=== PATIENT | male | born 1965 | race Caucasian/White ===

== ENCOUNTER 2017-01-31 10:08 | Observation (INO) | payer OTHER, SELFPAY ==
[~2017-01-31] VITALS: Ht 180.3 cm; Wt 121.0 kg
[2017-01-31] MEDS ORDERED: IPRATROPIUM 0.5MG/ALBUTEROL 2.5MG INH SOL UD 3ML (DUONEB)(J7620) As Ordered ONE (10:10)
[2017-01-31] MEDS ORDERED: ALBUTEROL SULFATE 2.5 MG/0.5 ML INH NEB SOLN INH ONE (10:15)
[2017-01-31] MEDS ORDERED: methylPREDNISolone INJ 125 MG/2 ML VIAL (J2930) IV ONE (10:15)
[2017-01-31] MEDS ORDERED: NS 1,000 ML IV ONE (10:15)
[2017-01-31] MEDS ORDERED: ATOR1TAB21 PO (10:24)
[2017-01-31] MEDS ORDERED: IPRATROPIUM 0.5MG/ALBUTEROL 2.5MG INH SOL UD 3ML (DUONEB)(J7620) NEB ONE (10:30)
[2017-01-31 10:31] LABS: BASO # 0.1 10^3/uL (0.0-0.2); BASO % 0.5 % (0.0-1.0); EOS # 0.2 10^3/uL (0.0-0.50); EOS % 1.2 % (0.0-3.0); IMMATURE GRANULOCYTE % 0.8 % (0-0); LYMPH # 3.6 10^3/uL (1.5-4.5); LYMPH % 20.9 % (24.0-44.0); MEAN CORPUSCULAR HEMOGLOBIN 33.3 pg (27.0-33.0); MEAN CORPUSCULAR HGB CONC 34.5 g/dl (32.0-36.5); MEAN CORPUSCULAR VOLUME 96.5 fl (80.0-96.0); MONO # 0.9 10^3/uL (0.0-0.8); MONO % 5.3 % (0.0-5.0); NEUTROPHILS # 12.3 10^3/uL (1.8-7.7); NEUTROPHILS % 71.3 % (36.0-66.0); PLATELET COUNT, AUTOMATED 192 10^3/uL (150-450); RED CELL DISTRIBUTION WIDTH 12.7 % (11.5-14.5); WHITE BLOOD COUNT 17.3 10^3/uL (4.0-10.0)
[2017-01-31 10:37] LABS: ABG HCO3 16.8 MEQ/L (22.0-26.0); ABG PARTIAL PRESSURE CO2 24.5 mmHg (35.0-45.0); ABG PARTIAL PRESSURE O2 98.9 mmHg (75.0-100.0); ABG STANDARD HCO3 20.4 MEQ/L (22.0-26.0); ABG TOTAL CO2 17.6 MEQ/L (22.0-29.0); ABG pH (ARTERIAL) 7.454 UNITS (7.350-7.450)
[2017-01-31] MEDS ORDERED: MORPHINE 4 MG/ML 1ML SYRINGE IV ONE ×2 (11:00→12:15)
[2017-01-31] MEDS ORDERED: ONDANSETRON 4MG/2ML VIAL (J2405) IV ONE (11:00)
[2017-01-31 11:08] LABS: ALBUMIN 3.6 GM/DL (3.2-5.2); ALBUMIN/GLOBULIN RATIO 1.03 (1.00-1.93); ALKALINE PHOSPHATASE 99 U/L (45-117); ALT/SGPT 77 U/L (12-78); ANION GAP 13 MEQ/L (8-16); AST/SGOT 49 U/L (7-37); BILIRUBIN,DIRECT < 0.1 MG/DL (0.0-0.2); BILIRUBIN,TOTAL 0.3 MG/DL (0.2-1.0); BLOOD UREA NITROGEN 18 MG/DL (7-18); CALCIUM LEVEL 9.2 MG/DL (8.5-10.1); CARBON DIOXIDE LEVEL 23 MEQ/L (21-32); CHLORIDE LEVEL 101 MEQ/L (98-107); CREATININE FOR GFR 1.45 MG/DL (0.70-1.30); GLOMERULAR FILTRATION RATE 54.4 (>56); GLUCOSE, FASTING 209 MG/DL (70-105); POTASSIUM SERUM 4.4 MEQ/L (3.5-5.1); SODIUM LEVEL 137 MEQ/L (136-145); TOTAL PROTEIN 7.1 GM/DL (6.4-8.2)
[2017-01-31] MEDS ORDERED: POLYSPORIN TOPICAL OINTMENT 15GM As Ordered ONE (11:22)
--- NOTE | 2017-01-31 11:23 | REP ---
Chest one-view HISTORY: Cough Comparison: 07/18/2012 The lungs are clear. The heart is normal in size. The pulmonary vasculature is normal in appearance. Impression: No acute disease. Signed by Paulino Cordova MD 01/31/2017 11:15 A
[2017-01-31] MEDS ORDERED: LEVALBUTEROL 1.25 MG/0.5 ML CONCENTRATE NEB INH ONE (11:30)
[2017-01-31] MEDS ORDERED: POLYSPORIN TOPICAL OINTMENT 15GM TOP ONE (12:45)
[2017-01-31] MEDS ORDERED: PERCOCET 5MG/325MG TAB PO ONE (13:15)
[2017-01-31] MEDS ORDERED: ADACEL/BOOSTRIX VACCINE (DIPHTH/PERTUSS/ACELL/TETANUS)0.5ML SYR (90715) IM ONE (13:30)
[2017-01-31] MEDS ORDERED: TETANUS/DIPHTHERIA TOX ADSORB ADULT 0.5ML SYR/VIAL (90714) IM ONE (13:30)
[2017-01-31] MEDS ORDERED: ALBUTEROL 90 MCG/ACT 8GM HFA INHALER As Ordered ONE (13:38)
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
[2017-01-31] MEDS ORDERED: MORPHINE 2 MG/ML 1ML SYRINGE IV PRN (15:15)
[2017-01-31] MEDS ORDERED: ONDANSETRON 4MG/2ML VIAL (J2405) IV PRN (15:15)
[2017-01-31] MEDS ORDERED: THIAMINE HCL 200 MG/2 ML VIAL (J3411) IV ONE (15:15)
[2017-01-31] MEDS ORDERED: OXAZEPAM 10 MG CAP PO PRN (15:15)
[2017-01-31] MEDS ORDERED: ALBUTEROL SULFATE 2.5 MG/0.5 ML INH NEB SOLN NEB PRN (15:45)
[2017-01-31 16:00] VITALS: BP 138/97; O2SAT 96
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
[2017-01-31] MEDS: NS 1,000 ML IV SCH (18:07)
[2017-01-31] MEDS: THIAMINE 100 MG TAB PO SCH (18:17)
[2017-01-31 18:44] VITALS: O2SAT 96
[2017-01-31 20:00] VITALS: BP 175/95
[2017-01-31] MEDS: ALBUTEROL SULFATE 2.5 MG/0.5 ML INH NEB SOLN NEB SCH (20:09)
[2017-01-31 21:00] VITALS: O2SAT 94
[2017-01-31] MEDS ORDERED: ENOXAPARIN 40 MG/0.4 ML SYRINGE (J1650) SC SCH (21:00)
[2017-01-31] MEDS ORDERED: ATORVASTATIN 20 MG TAB PO SCH (21:00)
[2017-01-31] MEDS: ACETAMINOPHEN TAB 650MG DOSE (2X325MG) PO PRN (21:41)
[2017-01-31 23:00] VITALS: O2SAT 93
[2017-01-31] MEDS: traMADol 50 MG TAB PO PRN (23:50)
[2017-02-01] VITALS (9 sets, daily range): BP systolic 111–187; BP diastolic 62–96; O2SAT 89–97
[2017-02-01] MEDS: ALBUTEROL SULFATE 2.5 MG/0.5 ML INH NEB SOLN NEB SCH ×2 (01:50→07:00)
[2017-02-01] MEDS: NS 1,000 ML IV SCH ×2 (02:58→08:47)
[2017-02-01] MEDS: ACETAMINOPHEN TAB 650MG DOSE (2X325MG) PO PRN (02:58)
[2017-02-01 05:37] LABS: BASO % 0.1 % (0.0-1.0); IMMATURE GRANULOCYTE % 0.4 % (0-0); LYMPH # 0.9 10^3/uL (1.5-4.5); LYMPH % 8.3 % (24.0-44.0); MEAN CORPUSCULAR HGB CONC 34.2 g/dl (32.0-36.5); MEAN CORPUSCULAR VOLUME 96.7 fl (80.0-96.0); MONO # 0.7 10^3/uL (0.0-0.8); MONO % 6.2 % (0.0-5.0); NEUTROPHILS # 9.6 10^3/uL (1.8-7.7); PLATELET COUNT, AUTOMATED 134 10^3/uL (150-450); RED CELL DISTRIBUTION WIDTH 13.1 % (11.5-14.5); WHITE BLOOD COUNT 11.3 10^3/uL (4.0-10.0)
[2017-02-01 06:00] LABS: ALBUMIN 3.3 GM/DL (3.2-5.2); ALBUMIN/GLOBULIN RATIO 0.92 (1.00-1.93); ALKALINE PHOSPHATASE 59 U/L (45-117); ALT/SGPT 58 U/L (12-78); ANION GAP 9 MEQ/L (8-16); AST/SGOT 31 U/L (7-37); BILIRUBIN,TOTAL 0.4 MG/DL (0.2-1.0); BLOOD UREA NITROGEN 20 MG/DL (7-18); CALCIUM LEVEL 8.9 MG/DL (8.5-10.1); CARBON DIOXIDE LEVEL 24 MEQ/L (21-32); CHLORIDE LEVEL 104 MEQ/L (98-107); CREATININE FOR GFR 0.94 MG/DL (0.70-1.30); GLOMERULAR FILTRATION RATE > 60.0 (>56); GLUCOSE, FASTING 129 MG/DL (70-105); POTASSIUM SERUM 4.4 MEQ/L (3.5-5.1); SODIUM LEVEL 137 MEQ/L (136-145); TOTAL PROTEIN 6.9 GM/DL (6.4-8.2)
[2017-02-01] MEDS: THIAMINE 100 MG TAB PO SCH (08:24)
[2017-02-01] MEDS: traMADol 50 MG TAB PO PRN (08:25)
--- NOTE | 2017-02-01 08:50 | ECGEPIP ---
Stationary ECG Study [facility] - ED Test Date: 2017-01-31 Pat Name: SAMANTA MADRIGAL Department: Room: - Gender: M Bobj Developer: AF : 1965 Requested By: Benjy Turner Order Number: [id number] Reading MD: Stevie Rogers Measurements Intervals [place] Rate: 140 P: 48 NC: 128 QRS: 56 QRSD: 91 T: 2 QT: 304 QTc: 464 Interpretive Statements SINUS TACHYCARDIA MODERATE ST DEPRESSION, POSSIBLE RATE RELATED, CONSIDER ISCHEMIA Electronically Signed On 02-01-2017 8:50:07 EDT by Stevie Rogers
--- NOTE | 2017-02-01 08:51 | ECGEPIP ---
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
[2017-02-01] MEDS ORDERED: THIA100TA PO (09:43)
[2017-02-01] MEDS ORDERED: ALB2.5NEB NEB (09:43)
[2017-02-01] MEDS ORDERED: TRAM50TA2 PO (09:43)
[2017-02-02] MEDS ORDERED: INFLUENZA QUADRIVALENT PF VACCINE 0.5ML SYRINGE (90686) IM ONE (09:00)
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
== END 2017-02-01 11:58 | disposition home or self-care (01) ==
LOC: M ED 10:08 → M ED INP 13:41 → M PCU 15:50
PROVIDERS: ADMIT Family Medicine; ATTEND Family Medicine
DX: T59.811A Toxic effect of smoke, accidental (unintentional), initial encounter (principal); R06.02 Shortness of breath; T23.142A Burn of first degree of multiple left fingers (nail), including thumb, initial encounter; T23.141A Burn of first degree of multiple right fingers (nail), including thumb, initial encounter; Y92.018 Other place in single-family (private) house as the place of occurrence of the external cause; Y99.8 Other external cause status; Y93.9 Activity, unspecified; E78.4 Other hyperlipidemia; I10 Essential (primary) hypertension; R31.29 Other microscopic hematuria; R73.01 Impaired fasting glucose; K76.0 Fatty (change of) liver, not elsewhere classified; F10.10 Alcohol abuse, uncomplicated; F32.9 Major depressive disorder, single episode, unspecified; Z79.899 Other long term (current) drug therapy; F17.210 Nicotine dependence, cigarettes, uncomplicated; N17.9 Acute kidney failure, unspecified
CPT/HCPCS: 36415; 36600; 71010; 80048; 80053; 80076; 82375; 82550; 82553; 82803; 84436; 84443; 85025; 87040; 90471; 90715; 93005; 93041; 94640; 96361; 96372; 96374; 96375; 97162; 99285; J1650; J2405; J2930

== ENCOUNTER → 2019-05-03 | Outpatient (REF) | payer OTHER, SELFPAY ==
[~2019-05-03] MED LIST: ALB2.5NEB NEB; ATOR1TAB21 PO; THIA100TA PO; TRAM50TA2 PO
[2019-05-03 13:21] LABS: HEMATOCRIT 47.3 % (42.0-52.0); MEAN CORPUSCULAR HEMOGLOBIN 33.1 pg (27.0-33.0); MEAN CORPUSCULAR HGB CONC 33.8 g/dl (32.0-36.5); MEAN CORPUSCULAR VOLUME 97.7 fl (80.0-96.0); PLATELET COUNT, AUTOMATED 152 10^3/uL (150-450); RED BLOOD COUNT 4.84 10^6/uL (4.30-6.10); WHITE BLOOD COUNT 9.4 10^3/uL (4.0-10.0)
[2019-05-03 13:30] LABS: ALBUMIN 3.8 GM/DL (3.2-5.2); ALT/SGPT 82 U/L (12-78); BILIRUBIN,TOTAL 0.3 MG/DL (0.2-1.0); BLOOD UREA NITROGEN 18 MG/DL (7-18); CALCIUM LEVEL 9.5 MG/DL (8.5-10.1); CARBON DIOXIDE LEVEL 28 MEQ/L (21-32); CHLORIDE LEVEL 104 MEQ/L (98-107); CHOLESTEROL LEVEL 241 MG/DL (<200); CREATININE FOR GFR 1.16 MG/DL (0.70-1.30); FREE T4 0.93 NG/DL (0.76-1.46); GLOMERULAR FILTRATION RATE > 60.0 (>56); GLUCOSE, FASTING 138 MG/DL (70-100); HDL CHOLESTEROL 50 MG/DL (>40); LDL CHOLESTEROL 152 MG/DL (<100); NON-HDL-C 191 MG/DL; POTASSIUM SERUM 4.6 MEQ/L (3.5-5.1); SODIUM LEVEL 139 MEQ/L (136-145); TOTAL PROTEIN 7.2 GM/DL (6.4-8.2); TRIGLYCERIDES LEVEL 193 MG/DL (<150)
[2019-05-03 13:31] LABS: TOTAL 25(OH) VITAMIN D 12.2 NG/ML (30.0-100.0)
[2019-05-03 14:07] LABS: HEMOGLOBIN A1c 6.8 %
== END ==
LOC: M SFHCADAM 09:54
PROVIDERS: ATTEND Family Medicine
DX: E55.9 Vitamin D deficiency, unspecified (principal); R73.01 Impaired fasting glucose; K76.0 Fatty (change of) liver, not elsewhere classified; E78.5 Hyperlipidemia, unspecified; R06.09 Other forms of dyspnea; Z12.5 Encounter for screening for malignant neoplasm of prostate
CPT/HCPCS: 80053; 80061; 82306; 83036; 84439; 84443; 85027; G0103

== ENCOUNTER → 2019-05-03 | Outpatient (CLI) | payer OTHER, SELFPAY ==
--- NOTE | 2019-05-04 07:28 | REP ---
PA and lateral chest: Comparison is 07/18/2012. The lung brandon are clear. The cardiac size is normal. The jesse, mediastinum, and skeletal structures are unremarkable. Impression: Negative PA and lateral chest. There is no interval change. Electronically Signed by Alfred Richard MD 05/03/2019 10:33 A
== END ==
LOC: M ADAMS 10:02
PROVIDERS: ATTEND Family Medicine
DX: R06.09 Other forms of dyspnea (principal)

== ENCOUNTER → 2019-05-09 | Outpatient (CLI) | payer SELFPAY ==
--- NOTE | 2019-05-10 07:05 | ECHO ---
DATE OF STUDY: 05/09/2019 REFERRING PHYSICIAN: Dr. Rocky Pardo INDICATION: Dyspnea. HEIGHT: 6 feet 0 inches. WEIGHT: 280 pounds. 2-D MEASUREMENTS: Ventricular septum: 1.28 cm Posterior wall: 1.25 cm Left ventricle diastole: 4.2 cm Left atrium: 3.8 cm Aortic root: 3.5 cm Aortic annulus: 2.3 cm Inferior vena cava: 1.5 cm (greater than 50% respiratory variation) DOPPLER MEASUREMENTS: No aortic regurgitation Aortic valve velocity: 155 cm/sec LVOT velocity: 112 cm/sec Trace mitral regurgitation Mitral E velocity: 74.1 cm/sec Mitral A velocity: 81.4 cm/sec Mitral deceleration time: 284 ms No tricuspid regurgitation No pulmonic regurgitation Pulmonary acceleration time: 120 ms MITRAL ANNULAR TISSUE DOPPLER: E prime septal: 6.1 cm/sec E prime lateral: 6.2 cm/sec DESCRIPTION: The rhythm was sinus. Image quality was adequate. No pericardial effusion. This was a 2-D, M-mode, color flow Doppler and pulse wave Doppler examination and included mitral annular tissue Doppler. CONCLUSIONS: 1. Normal left ventricle internal dimensions. Mild concentric left ventricle hypertrophy. Normal regional LV wall motion and wall thickening. Normal LV systolic function. LVEF 65% by visual estimate. Grade 1 LV diastolic dysfunction. 2. Mild aortic valve sclerosis of a 3-cuspid aortic valve. No aortic regurgitation. 3. Otherwise normal appearing echocardiogram Doppler findings.
== END ==
LOC: M CARPUL 10:16
PROVIDERS: ATTEND Family Medicine
DX: R06.09 Other forms of dyspnea (principal)

== ENCOUNTER → 2020-08-20 | Outpatient (CLI) | payer SELFPAY ==
--- NOTE | 2020-08-20 11:28 | REP ---
INDICATION: AVASCULAR NECROSIS OF BONE OF LEFT HIP COMPARISON: None. TECHNIQUE: AP and frog-lateral views of the left hip FINDINGS: Heterogeneous areas of sclerosis involving the femoral head and acetabulum with subchondral cystic changes and cortical irregularities raise the possibility of avascular necrosis along with advanced degenerative changes. IMPRESSION: Significant heterogeneous changes. Avascular necrosis cannot be excluded along with advanced arthritic degenerative change. <Electronically signed by Ruiz Damon > 08/20/20 1125
== END ==
LOC: M ADAMS 11:02
PROVIDERS: ATTEND Family Medicine
DX: M87.052 Idiopathic aseptic necrosis of left femur (principal)

== ENCOUNTER → 2021-03-25 | Outpatient (REF) | payer OTHER ==
[2021-03-25 13:13] LABS: HEMATOCRIT 44.8 % (42.0-52.0); HEMOGLOBIN 15.4 g/dl (13.5-17.5); MEAN CORPUSCULAR HEMOGLOBIN 33.1 pg (27.0-33.0); MEAN CORPUSCULAR HGB CONC 34.4 g/dl (32.0-36.5); MEAN CORPUSCULAR VOLUME 96.3 fl (80.0-96.0); PLATELET COUNT, AUTOMATED 122 10^3/uL (150-450); RED BLOOD COUNT 4.65 10^6/uL (4.30-6.10); WHITE BLOOD COUNT 6.7 10^3/uL (4.0-10.0)
[2021-03-25 13:37] LABS: ALBUMIN 3.7 GM/DL (3.2-5.2); ALT/SGPT 103 U/L (12-78); BILIRUBIN,TOTAL 0.3 MG/DL (0.2-1.0); BLOOD UREA NITROGEN 14 MG/DL (7-18); CARBON DIOXIDE LEVEL 24 MEQ/L (21-32); CHLORIDE LEVEL 107 MEQ/L (98-107); CHOLESTEROL LEVEL 199 MG/DL (<200); CHOLESTEROL RISK RATIO 3.209 (<5); GLOMERULAR FILTRATION RATE > 60.0 (>56); GLUCOSE, FASTING 176 MG/DL (70-100); HDL CHOLESTEROL 62 MG/DL (>40); LDL CHOLESTEROL 86 MG/DL (<100); NON-HDL-C 137 MG/DL; POTASSIUM SERUM 4.2 MEQ/L (3.5-5.1); SODIUM LEVEL 139 MEQ/L (136-145); TOTAL PROTEIN 7.5 GM/DL (6.4-8.2); TRIGLYCERIDES LEVEL 255 MG/DL (<150)
[2021-03-25 13:39] LABS: TOTAL 25(OH) VITAMIN D 13.8 NG/ML (30.0-100.0)
== END ==
LOC: M SFHCADAM 09:01
PROVIDERS: ATTEND Family Medicine
DX: M16.12 Unilateral primary osteoarthritis, left hip (principal); E55.9 Vitamin D deficiency, unspecified; E78.2 Mixed hyperlipidemia; E11.9 Type 2 diabetes mellitus without complications; Z12.5 Encounter for screening for malignant neoplasm of prostate
CPT/HCPCS: 80053; 80061; 82306; 83036; 85027; G0103

== ENCOUNTER 2024-03-29 12:51 | Inpatient (IN) | payer OTHER, SELFPAY ==
[~2024-03-29] VITALS: Ht 180.3 cm; Wt 113.2 kg
[2024-03-29] MEDS ORDERED: LISI10TA22 PO (13:10)
[2024-03-29] MEDS ORDERED: HYDR-3713 PO (13:10)
[2024-03-29] MEDS ORDERED: MELO15TA28 PO (13:10)
[2024-03-29] MEDS ORDERED: ATOR40TA75 PO (13:10)
[2024-03-29 13:46] LABS: VENOUS HCO3 19.6 MMOL/L (23.0-27.0); VENOUS O2 SATURATION 78.4 % (60.0-80.0); VENOUS PARTIAL PRESSURE CO2 39.3 mmHg (38.0-50.0); VENOUS PARTIAL PRESSURE O2 44.7 mmHg (30.0-50.0); VENOUS PH 7.316 UNITS (7.330-7.430); VENOUS STANDARD HCO3 19.2 MMOL/L; VENOUS TOTAL CO2 20.8 MMOL/L (24.0-28.0)
[2024-03-29 13:58] LABS: BASO # 0.1 10^3/uL (0.0-0.2); BASO % 0.7 % (0.0-1.0); EOS # 0.1 10^3/uL (0.0-0.5); EOS % 1.2 % (0.0-3.0); HEMATOCRIT 44.2 % (42.0-52.0); HEMOGLOBIN 15.3 g/dl (13.5-17.5); LYMPH # 1.8 10^3/uL (1.5-5.0); LYMPH % 19.2 % (24.0-44.0); MEAN CORPUSCULAR HEMOGLOBIN 33.9 pg (27.0-33.0); MEAN CORPUSCULAR HGB CONC 34.6 g/dl (32.0-36.5); MONO # 0.7 10^3/uL (0.0-0.8); MONO % 8.1 % (2.0-8.0); NEUTROPHILS # 6.5 10^3/uL (1.5-8.5); NEUTROPHILS % 70.5 % (36.0-66.0); PLATELET COUNT, AUTOMATED 109 10^3/uL (150-450); RED BLOOD COUNT 4.51 10^6/uL (4.30-6.10); WHITE BLOOD COUNT 9.2 10^3/uL (4.0-10.0)
[2024-03-29] MEDS: NS (Normal Saline) 0.9% 1,000 ML IV ONE ×2 (14:13→14:51)
[2024-03-29 14:14] LABS: HEMOGLOBIN A1c 12.4 % (4.0-6.0)
[2024-03-29 14:17] LABS: LIPASE 53 U/L (12-53)
[2024-03-29 14:19] LABS: ALBUMIN 4.2 G/DL (3.2-5.2); ALKALINE PHOSPHATASE 111 U/L (40-129); ALT/SGPT 81 U/L (7.0-40); AST/SGOT 50 U/L (<34); BILIRUBIN,DIRECT 0.2 MG/DL (<0.4); BILIRUBIN,TOTAL 0.6 MG/DL (0.3-1.2); TOTAL PROTEIN 7.8 G/DL (5.7-8.2)
[2024-03-29 14:21] LABS: OSMOLALITY SERUM 308 MOSM/KG (275-295)
[2024-03-29 14:23] LABS: ACETONE/KETONE > 4.50 MMOL/L (0.02-0.27)
[2024-03-29 15:25] LABS: BLOOD UREA NITROGEN 19 MG/DL (9-23); CALCIUM LEVEL 10.6 MG/DL (8.5-10.1); CARBON DIOXIDE LEVEL 20 MMOL/L (20-31); CHLORIDE LEVEL 94 MMOL/L (98-107); CREATININE FOR GFR 1.09 MG/DL (0.70-1.30); GLOMERULAR FILTRATION RATE > 60.0 (>56); GLUCOSE, FASTING 349 MG/DL (60-100); POTASSIUM SERUM 4.9 MMOL/L (3.5-5.1); SODIUM LEVEL 133 MMOL/L (136-145)
[2024-03-29] MEDS: HumuLIN R (REGULAR) INSULIN (NovoLIN R) **100U/ML** PER UNIT IV ONE (15:53)
[2024-03-29] MEDS ORDERED: HOME MED LIST COMPLETE! XX SCH (16:20)
[2024-03-29] MEDS ORDERED: DEXTROSE 50% 50ML SYRINGE IV PRN (17:00)
[2024-03-29] MEDS ORDERED: GLUCAGON INJ 1MG VIAL SC PRN (17:00)
[2024-03-29] MEDS ORDERED: GLUCOSE 4 GM CHEW PO PRN (17:00)
[2024-03-29] MEDS ORDERED: LORazepam 2 MG TAB PO PRN (17:15)
[2024-03-29] MEDS: NS (Normal Saline) 0.9% 1,000 ML IV SCH (17:32)
[2024-03-29 18:11] LABS: BLOOD UREA NITROGEN 16 MG/DL (9-23); CALCIUM LEVEL 9.3 MG/DL (8.5-10.1); CARBON DIOXIDE LEVEL 23 MMOL/L (20-31); CHLORIDE LEVEL 102 MMOL/L (98-107); CREATININE FOR GFR 0.95 MG/DL (0.70-1.30); GLOMERULAR FILTRATION RATE > 60.0 (>56); GLUCOSE, FASTING 256 MG/DL (60-100); POTASSIUM SERUM 4.7 MMOL/L (3.5-5.1); SODIUM LEVEL 137 MMOL/L (136-145)
[2024-03-29] MEDS: FOLIC ACID 1MG TAB PO SCH (18:12)
[2024-03-29] MEDS: MULTIVITAMINS/MINERALS THERAP 1 TAB PO SCH (18:13)
[2024-03-29] MEDS: INSULIN LISPRO (NovoLOG) PER UNIT SC SCH ×2 (18:13→20:46)
[2024-03-29] MEDS ORDERED: NICOTINE 7 MG/24 HR TRANSDERMAL TD PRN (18:40)
[2024-03-29] MEDS ORDERED: NICOTINE POLACRILEX 2 MG GUM PO PRN (18:40)
[2024-03-29 20:04] VITALS: BP 131/66; TEMP 97.5; O2SAT 96
[2024-03-29 20:13] VITALS: BP 131/66
[2024-03-29] MEDS: ATORVASTATIN 20 MG TAB PO SCH (20:44)
[2024-03-29] MEDS: oxyCODONE 5MG TAB PO PRN (20:45)
[2024-03-29] MEDS: THIAMINE 100 MG TAB PO SCH (20:45)
[2024-03-29 20:52] VITALS: BP 131/66
[2024-03-29] MEDS: LORazepam 0.5 MG TAB PO ONE (21:49)
[2024-03-29] MEDS: RAMELTEON 8 MG TAB (ROZEREM) PO ONE (21:49)
[2024-03-29 23:43] LABS: BLOOD UREA NITROGEN 21 MG/DL (9-23); CALCIUM LEVEL 9.2 MG/DL (8.5-10.1); CARBON DIOXIDE LEVEL 25 MMOL/L (20-31); CHLORIDE LEVEL 99 MMOL/L (98-107); CREATININE FOR GFR 1.11 MG/DL (0.70-1.30); GLOMERULAR FILTRATION RATE > 60.0 (>56); GLUCOSE, FASTING 368 MG/DL (60-100); POTASSIUM SERUM 4.4 MMOL/L (3.5-5.1); SODIUM LEVEL 134 MMOL/L (136-145)
[2024-03-30] VITALS (11 sets, daily range): BP systolic 86–130; BP diastolic 48–73; TEMP 97–97.3; O2SAT 95–97
[2024-03-30] MEDS: NS 500 ML IV ONE (00:20)
[2024-03-30] MEDS: INSULIN LISPRO (NovoLOG) PER UNIT SC ONE (00:26)
[2024-03-30] MEDS: ACETAMINOPHEN 325 MG TAB PO PRN (02:31)
[2024-03-30 04:40] LABS: HEMATOCRIT 34.6 % (42.0-52.0); MEAN CORPUSCULAR HEMOGLOBIN 34.4 pg (27.0-33.0); MEAN CORPUSCULAR HGB CONC 34.7 g/dl (32.0-36.5); MEAN CORPUSCULAR VOLUME 99.1 fl (80.0-96.0); RED BLOOD COUNT 3.49 10^6/uL (4.30-6.10); WHITE BLOOD COUNT 5.4 10^3/uL (4.0-10.0)
[2024-03-30 04:47] LABS: PLATELET COUNT, AUTOMATED 71 10^3/uL (150-450)
[2024-03-30 05:10] LABS: ALBUMIN 2.9 G/DL (3.2-5.2); ALKALINE PHOSPHATASE 76 U/L (40-129); ALT/SGPT 50 U/L (7.0-40); AST/SGOT 25 U/L (<34); BILIRUBIN,DIRECT 0.1 MG/DL (<0.4); BILIRUBIN,TOTAL 0.3 MG/DL (0.3-1.2); BLOOD UREA NITROGEN 19 MG/DL (9-23); CALCIUM LEVEL 9.2 MG/DL (8.5-10.1); CARBON DIOXIDE LEVEL 25 MMOL/L (20-31); CHLORIDE LEVEL 102 MMOL/L (98-107); CREATININE FOR GFR 0.96 MG/DL (0.70-1.30); GLOMERULAR FILTRATION RATE > 60.0 (>56); GLUCOSE, FASTING 233 MG/DL (60-100); POTASSIUM SERUM 3.9 MMOL/L (3.5-5.1); SODIUM LEVEL 138 MMOL/L (136-145); TOTAL PROTEIN 5.9 G/DL (5.7-8.2)
[2024-03-30] MEDS ORDERED: ENOXAPARIN 40MG/0.4ML SYRINGE (J1650 PER 10MG) SC SCH (09:00)
[2024-03-30 10:56] LABS: BLOOD UREA NITROGEN 18 MG/DL (9-23); CARBON DIOXIDE LEVEL 27 MMOL/L (20-31); CHLORIDE LEVEL 103 MMOL/L (98-107); CREATININE FOR GFR 0.95 MG/DL (0.70-1.30); GLOMERULAR FILTRATION RATE > 60.0 (>56); GLUCOSE, FASTING 255 MG/DL (60-100); SODIUM LEVEL 138 MMOL/L (136-145)
[2024-03-30] MEDS: LEVEMIR (INSULIN DETEMIR) 1 UNITS/0.01ML SC SCH (13:15)
[2024-03-30 18:10] LABS: BLOOD UREA NITROGEN 16 MG/DL (9-23); CALCIUM LEVEL 9.4 MG/DL (8.5-10.1); CARBON DIOXIDE LEVEL 27 MMOL/L (20-31); CHLORIDE LEVEL 102 MMOL/L (98-107); CREATININE FOR GFR 0.96 MG/DL (0.70-1.30); GLOMERULAR FILTRATION RATE > 60.0 (>56); GLUCOSE, FASTING 273 MG/DL (60-100); POTASSIUM SERUM 4.3 MMOL/L (3.5-5.1); SODIUM LEVEL 137 MMOL/L (136-145)
[2024-03-30 23:26] LABS: BLOOD UREA NITROGEN 17 MG/DL (9-23); CALCIUM LEVEL 9.8 MG/DL (8.5-10.1); CARBON DIOXIDE LEVEL 26 MMOL/L (20-31); CHLORIDE LEVEL 100 MMOL/L (98-107); CREATININE FOR GFR 0.88 MG/DL (0.70-1.30); GLOMERULAR FILTRATION RATE > 60.0 (>56); GLUCOSE, FASTING 304 MG/DL (60-100); POTASSIUM SERUM 4.4 MMOL/L (3.5-5.1); SODIUM LEVEL 136 MMOL/L (136-145)
[2024-03-31] VITALS (7 sets, daily range): BP systolic 128–165; BP diastolic 79–92; TEMP 97.2–97.5; O2SAT 96–98
[2024-03-31 05:26] LABS: HEMATOCRIT 37.6 % (42.0-52.0); HEMOGLOBIN 12.9 g/dl (13.5-17.5); MEAN CORPUSCULAR HEMOGLOBIN 33.8 pg (27.0-33.0); MEAN CORPUSCULAR HGB CONC 34.3 g/dl (32.0-36.5); MEAN CORPUSCULAR VOLUME 98.4 fl (80.0-96.0); RED BLOOD COUNT 3.82 10^6/uL (4.30-6.10); WHITE BLOOD COUNT 5.7 10^3/uL (4.0-10.0)
[2024-03-31 05:30] LABS: PLATELET COUNT, AUTOMATED 81 10^3/uL (150-450)
[2024-03-31 06:00] LABS: ALBUMIN 3.4 G/DL (3.2-5.2); BILIRUBIN,DIRECT 0.1 MG/DL (<0.4); BILIRUBIN,TOTAL 0.4 MG/DL (0.3-1.2); TOTAL PROTEIN 6.7 G/DL (5.7-8.2)
[2024-03-31] MEDS: LEVEMIR (INSULIN DETEMIR) 1 UNITS/0.01ML SC SCH (08:28)
[2024-03-31] MEDS: oxyCODONE 5MG TAB PO PRN (08:35)
[2024-03-31] MEDS ORDERED: ISOVUE-370 76% 100ML VIAL As Ordered ONE (09:29)
[2024-04-01] VITALS: BP 132/81; TEMP 97.3; O2SAT 95
[2024-04-01 04:43] LABS: C-PEPTIDE 2.62 ng/mL (0.80-3.85)
[2024-04-01 04:56] VITALS: BP 131/81; TEMP 97.5; O2SAT 92
[2024-04-01 06:13] LABS: HEMOGLOBIN 12.6 g/dl (13.5-17.5); MEAN CORPUSCULAR HEMOGLOBIN 34.3 pg (27.0-33.0); MEAN CORPUSCULAR VOLUME 98.1 fl (80.0-96.0); PLATELET COUNT, AUTOMATED 78 10^3/uL (150-450); RED BLOOD COUNT 3.67 10^6/uL (4.30-6.10); WHITE BLOOD COUNT 5.5 10^3/uL (4.0-10.0)
[2024-04-01 06:31] LABS: ALBUMIN 3.2 G/DL (3.2-5.2); BILIRUBIN,DIRECT 0.2 MG/DL (<0.4); BILIRUBIN,TOTAL 0.4 MG/DL (0.3-1.2); TOTAL PROTEIN 6.4 G/DL (5.7-8.2)
[2024-04-01 06:44] LABS: BLOOD UREA NITROGEN 17 MG/DL (9-23); CALCIUM LEVEL 9.5 MG/DL (8.5-10.1); CARBON DIOXIDE LEVEL 30 MMOL/L (20-31); CHLORIDE LEVEL 102 MMOL/L (98-107); CREATININE FOR GFR 1.03 MG/DL (0.70-1.30); GLOMERULAR FILTRATION RATE > 60.0 (>56); GLUCOSE, FASTING 273 MG/DL (60-100); POTASSIUM SERUM 3.8 MMOL/L (3.5-5.1); SODIUM LEVEL 140 MMOL/L (136-145)
[2024-04-01] MEDS: LEVEMIR (INSULIN DETEMIR) 1 UNITS/0.01ML SC SCH (07:51)
[2024-04-01] MEDS: INSULIN LISPRO (NovoLOG) PER UNIT SC SCH (07:52)
[2024-04-01 08:00] VITALS: BP 144/90; TEMP 97.7; O2SAT 98
[2024-04-01 12:51] VITALS: BP 121/73; TEMP 96.8; O2SAT 97
[2024-04-01 16:00] VITALS: BP 123/78; TEMP 97.3; O2SAT 98
[2024-04-01 20:00] VITALS: BP 120/72; TEMP 97.7; O2SAT 98
[2024-04-02] VITALS: BP 119/72; TEMP 97.7; O2SAT 96
[2024-04-02 04:00] VITALS: BP 139/88; TEMP 97.3; O2SAT 96
[2024-04-02 05:45] LABS: HEMATOCRIT 37.8 % (42.0-52.0); HEMOGLOBIN 12.8 g/dl (13.5-17.5); MEAN CORPUSCULAR HGB CONC 33.9 g/dl (32.0-36.5); MEAN CORPUSCULAR VOLUME 100.5 fl (80.0-96.0); RED BLOOD COUNT 3.76 10^6/uL (4.30-6.10); WHITE BLOOD COUNT 6.2 10^3/uL (4.0-10.0)
[2024-04-02 05:47] LABS: PLATELET COUNT, AUTOMATED 79 10^3/uL (150-450)
[2024-04-02 06:14] LABS: BLOOD UREA NITROGEN 17 MG/DL (9-23); CALCIUM LEVEL 9.7 MG/DL (8.5-10.1); CARBON DIOXIDE LEVEL 29 MMOL/L (20-31); CHLORIDE LEVEL 102 MMOL/L (98-107); CREATININE FOR GFR 1.13 MG/DL (0.70-1.30); GLOMERULAR FILTRATION RATE > 60.0 (>56); GLUCOSE, FASTING 226 MG/DL (60-100); POTASSIUM SERUM 3.5 MMOL/L (3.5-5.1); SODIUM LEVEL 140 MMOL/L (136-145)
[2024-04-02 08:30] VITALS: BP 115/73; TEMP 97.3; O2SAT 97
[2024-04-02 08:54] VITALS: BP 115/73
[2024-04-02] MEDS ORDERED: DEXT4TAB83 PO (10:56)
[2024-04-02] MEDS ORDERED: INSU1MIS20 SC (10:56)
[2024-04-02] MEDS ORDERED: INSUHUMDS SC (10:56)
[2024-04-02] MEDS ORDERED: GLUC1TES2 XX (10:56)
[2024-04-02] MEDS ORDERED: LANTINJ4 SC (10:56)
[2024-04-02] MEDS ORDERED: FOLI1TAB11 PO (10:56)
[2024-04-02] MEDS ORDERED: LANC30MI XX (10:56)
[2024-04-02] MEDS ORDERED: ALCOPAD25 TOP (10:56)
[2024-04-02] MEDS ORDERED: PEN-308 SC (10:56)
[2024-04-02] MEDS ORDERED: HUMA100I5 SC (10:56)
[2024-04-02] MEDS ORDERED: BLOOKIT21 XX (10:56)
[2024-04-02] MEDS ORDERED: NICO7PA TD (10:56)
[2024-04-02] MEDS ORDERED: NICO2GUM PO (10:56)
[2024-04-02] MEDS: LEVEMIR (INSULIN DETEMIR) 1 UNITS/0.01ML SC ONE (10:57)
[2024-04-02 12:00] VITALS: BP 108/65; TEMP 97.5; O2SAT 98
[2024-04-02] MEDS ORDERED: NOVOINJ3 SC (13:01)
[2024-04-02] MEDS ORDERED: NOVOINJ SC (13:01)
[2024-04-02] MEDS: INSULIN LISPRO (NovoLOG) PER UNIT SC SCH (13:37)
[2024-04-03] MEDS ORDERED: LEVEMIR (INSULIN DETEMIR) 1 UNITS/0.01ML SC SCH (09:00)
[2024-04-03 15:43] LABS: GAD-65 AUTOANTIBODY < 5 IU/mL (<5)
[2024-04-03 15:57] LABS: ISLET CELL ANTIBODIES NEGATIVE (NEGATIVE)
== END 2024-04-02 15:26 | disposition home or self-care (01) | DRG 420 ==
LOC: M ED 12:51 → M ED INP 17:04 → M MSPAV 20:04
PROVIDERS: ADMIT Student in an Organized Health Care Education/Training Program; ATTEND Student in an Organized Health Care Education/Training Program
DX: E11.10 Type 2 diabetes mellitus with ketoacidosis without coma (principal); I10 Essential (primary) hypertension; E78.5 Hyperlipidemia, unspecified; E66.9 Obesity, unspecified; Z79.4 Long term (current) use of insulin; F10.10 Alcohol abuse, uncomplicated; D69.6 Thrombocytopenia, unspecified; F17.200 Nicotine dependence, unspecified, uncomplicated; G89.29 Other chronic pain; Z79.899 Other long term (current) drug therapy; K76.0 Fatty (change of) liver, not elsewhere classified; M81.0 Age-related osteoporosis without current pathological fracture

== ENCOUNTER → 2024-04-11 | Outpatient (CLI) | payer OTHER ==
[~2024-04-11] MED LIST changes: +ALCOPAD25 TOP; +ATOR40TA75 PO; +BLOOKIT21 XX; +DEXT4TAB83 PO; +FOLI1TAB11 PO; +GLUC1TES2 XX; +HUMA100I5 SC; +HYDR-3713 PO; +INSU1MIS20 SC; +INSUHUMDS SC; +LANC30MI XX; +LANTINJ4 SC; +LISI10TA22 PO; +MELO15TA28 PO; +NICO2GUM PO; +NICO7PA TD; +NOVOINJ SC; +NOVOINJ3 SC; +PEN-308 SC
== END ==
LOC: M ADAMS 09:55
PROVIDERS: ATTEND Physician Assistant
DX: M87.052 Idiopathic aseptic necrosis of left femur (principal)

== ENCOUNTER → 2024-05-01 | Outpatient (CLI) | payer OTHER ==
[2024-05-01 13:16] LABS: HEMATOCRIT 39.7 % (42.0-52.0); HEMOGLOBIN 13.3 g/dl (13.5-17.5); MEAN CORPUSCULAR HEMOGLOBIN 34.2 pg (27.0-33.0); MEAN CORPUSCULAR HGB CONC 33.5 g/dl (32.0-36.5); MEAN CORPUSCULAR VOLUME 102.1 fl (80.0-96.0); RED BLOOD COUNT 3.89 10^6/uL (4.30-6.10); WHITE BLOOD COUNT 6.4 10^3/uL (4.0-10.0)
[2024-05-01 13:18] LABS: PLATELET COUNT, AUTOMATED 84 10^3/uL (150-450)
[2024-05-01 13:46] LABS: PSA SCREENING 0.58 NG/ML (< 4.00)
[2024-05-01 13:49] LABS: ALBUMIN 3.5 G/DL (3.2-5.2); ALKALINE PHOSPHATASE 72 U/L (40-129); ALT/SGPT 34 U/L (7.0-40); AST/SGOT 26 U/L (<34); BILIRUBIN,TOTAL 0.6 MG/DL (0.3-1.2); BLOOD UREA NITROGEN 15 MG/DL (9-23); CARBON DIOXIDE LEVEL 30 MMOL/L (20-31); CHLORIDE LEVEL 108 MMOL/L (98-107); CHOLESTEROL LEVEL 160 MG/DL (<200); CHOLESTEROL RISK RATIO 2.12 (<5); CREATININE FOR GFR 0.97 MG/DL (0.70-1.30); GLOMERULAR FILTRATION RATE > 60.0 (>56); GLUCOSE, FASTING 123 MG/DL (60-100); HDL CHOLESTEROL 75.4 MG/DL (>40); NON-HDL-C 84.6 MG/DL; POTASSIUM SERUM 4.1 MMOL/L (3.5-5.1); SODIUM LEVEL 144 MMOL/L (136-145); TOTAL PROTEIN 6.8 G/DL (5.7-8.2); TRIGLYCERIDES LEVEL 48 MG/DL (<150)
[2024-05-01 13:56] LABS: CREATININE, URINE 400.6 MG/DL; MAU/CREAT RATIO 7.9 MCG/MG (0.0-30.0)
== END ==
LOC: M LAB 12:07
PROVIDERS: ATTEND Physician Assistant
DX: E11.65 Type 2 diabetes mellitus with hyperglycemia (principal); Z12.5 Encounter for screening for malignant neoplasm of prostate; E78.5 Hyperlipidemia, unspecified; I11.9 Hypertensive heart disease without heart failure; K76.0 Fatty (change of) liver, not elsewhere classified

== ENCOUNTER → 2024-05-02 | Outpatient (CLI) | payer OTHER ==
[2024-05-02 16:52] LABS: ALBUMIN 3.6 G/DL (3.2-5.2); ALKALINE PHOSPHATASE 81 U/L (40-129); ALT/SGPT 37 U/L (7.0-40); AST/SGOT 28 U/L (<34); BILIRUBIN,TOTAL 0.6 MG/DL (0.3-1.2); BLOOD UREA NITROGEN 14 MG/DL (9-23); C REACTIVE PROTEIN QUANTITATIV < 0.50 MG/DL (<1.0); CALCIUM LEVEL 9.2 MG/DL (8.5-10.1); CARBON DIOXIDE LEVEL 29 MMOL/L (20-31); CHLORIDE LEVEL 105 MMOL/L (98-107); GLOMERULAR FILTRATION RATE > 60.0 (>56); GLUCOSE, FASTING 100 MG/DL (60-100); POTASSIUM SERUM 4.2 MMOL/L (3.5-5.1); SODIUM LEVEL 146 MMOL/L (136-145)
[2024-05-02 16:55] LABS: TOTAL 25(OH) VITAMIN D 9.6 NG/ML (20.0-100.0)
[2024-05-02 17:02] LABS: BASO % 0.6 % (0.0-1.0); EOS # 0.2 10^3/uL (0.0-0.5); EOS % 2.2 % (0.0-3.0); HEMATOCRIT 41.8 % (42.0-52.0); LYMPH % 29.7 % (24.0-44.0); MEAN CORPUSCULAR HEMOGLOBIN 34.4 pg (27.0-33.0); MEAN CORPUSCULAR HGB CONC 33.5 g/dl (32.0-36.5); MEAN CORPUSCULAR VOLUME 102.7 fl (80.0-96.0); MONO # 0.8 10^3/uL (0.0-0.8); MONO % 11.4 % (2.0-8.0); NEUTROPHILS # 3.7 10^3/uL (1.5-8.5); PLATELET COUNT, AUTOMATED 100 10^3/uL (150-450); RED BLOOD COUNT 4.07 10^6/uL (4.30-6.10); WHITE BLOOD COUNT 6.7 10^3/uL (4.0-10.0)
[2024-05-02 17:05] LABS: INR 1.01; PROTHROMBIN TIME 13.6 SECONDS (12.5-14.5)
[2024-05-02 17:26] LABS: HEMOGLOBIN A1c 9.1 % (4.0-6.0)
== END ==
LOC: M WUC 13:25
PROVIDERS: ATTEND Orthopaedic Surgery
DX: M16.12 Unilateral primary osteoarthritis, left hip (principal)

== ENCOUNTER → 2024-05-18 | Outpatient (REF) | payer OTHER ==
[2024-05-18 12:34] LABS: HEMATOCRIT 42.1 % (42.0-52.0); HEMOGLOBIN 14.1 g/dl (13.5-17.5); MEAN CORPUSCULAR HEMOGLOBIN 34.4 pg (27.0-33.0); MEAN CORPUSCULAR HGB CONC 33.5 g/dl (32.0-36.5); MEAN CORPUSCULAR VOLUME 102.7 fl (80.0-96.0)
[2024-05-18 12:43] LABS: PLATELET COUNT, AUTOMATED 82 10^3/uL (150-450)
[2024-05-18 12:48] LABS: D-DIMER QUANT 0.65 ug/mL (<0.5); PARTIAL THROMBOPLASTIN TIME 28.5 SECONDS (24.8-34.2); PROTHROMBIN TIME 13.5 SECONDS (12.5-14.5)
[2024-05-18 13:05] LABS: ALBUMIN 3.9 G/DL (3.2-5.2); ALKALINE PHOSPHATASE 79 U/L (40-129); ALT/SGPT 44 U/L (7.0-40); AST/SGOT 38 U/L (<34); BILIRUBIN,TOTAL 0.4 MG/DL (0.3-1.2); BLOOD UREA NITROGEN 15 MG/DL (9-23); CALCIUM LEVEL 9.4 MG/DL (8.5-10.1); CARBON DIOXIDE LEVEL 28 MMOL/L (20-31); CHLORIDE LEVEL 103 MMOL/L (98-107); CREATININE FOR GFR 0.93 MG/DL (0.70-1.30); GLOMERULAR FILTRATION RATE > 60.0 (>56); GLUCOSE, FASTING 127 MG/DL (60-100); POTASSIUM SERUM 4.2 MMOL/L (3.5-5.1); SODIUM LEVEL 143 MMOL/L (136-145); TOTAL PROTEIN 7.2 G/DL (5.7-8.2)
[2024-05-18 13:07] LABS: HEMOGLOBIN A1c 7.4 % (4.0-6.0)
== END ==
LOC: M SFHCADAM 10:45
PROVIDERS: ATTEND Family Medicine
DX: R06.09 Other forms of dyspnea (principal); R60.0 Localized edema; E11.9 Type 2 diabetes mellitus without complications; K76.0 Fatty (change of) liver, not elsewhere classified; M79.89 Other specified soft tissue disorders

== ENCOUNTER → 2024-05-18 | Outpatient (CLI) | payer OTHER | LOC: M ADAMS 11:27 | PROVIDERS: ATTEND Family Medicine | DX: R06.09 Other forms of dyspnea (principal) ==

== ENCOUNTER → 2024-05-18 | Outpatient (CLI) | payer OTHER | LOC: M RAD 11:46 | PROVIDERS: ATTEND Family Medicine | DX: M79.661 Pain in right lower leg (principal); R22.41 Localized swelling, mass and lump, right lower limb ==

== ENCOUNTER → 2024-05-25 | Outpatient (REF) | payer OTHER ==
[2024-05-25 14:37] LABS: FERRITIN 265.3 NG/ML (10.5-307.3)
[2024-05-25 14:50] LABS: HEPATITIS B SURFACE ANTIGEN NEGATIVE (NEGATIVE)
[2024-05-25 15:11] LABS: HEPATITIS C VIRUS ABY INDEX 0.13 INDEX (<0.8)
[2024-05-25 15:12] LABS: HEPATITIS B CORE ANTIBODY IGM NEGATIVE (NEGATIVE)
[2024-05-29 12:22] LABS: ANA PATTERN Cytoplasmic (NEGATIVE); ANA SCREEN, IFA POSITIVE (NEGATIVE); ANA TITER 1:40 titer (<1:40)
[2024-05-30 07:12] LABS: LIVER-KIDNEY MICROSOMAL ABY <= 20.0 U (<=20.0)
== END ==
LOC: M SFHCADAM 08:57
PROVIDERS: ATTEND Family Medicine
DX: K74.69 Other cirrhosis of liver (principal)

== ENCOUNTER → 2024-06-12 | Outpatient (CLI) | payer OTHER ==
[~2024-06-12] MED LIST changes: +ALBU8.5H; +BASA100I SQ; +BUSP10TA PO; +CHLO125TA PO; +INSUHUMDS; +SEMA0.257
== END ==
LOC: M RAD 15:32
PROVIDERS: ATTEND Neuromusculoskeletal Medicine, Sports Medicine
DX: M16.12 Unilateral primary osteoarthritis, left hip (principal)

== ENCOUNTER 2024-06-19 09:04 | Outpatient (RCR) | payer OTHER | END 2024-07-02 | LOC: M PT 09:04 | PROVIDERS: ATTEND Neuromusculoskeletal Medicine, Sports Medicine | DX: M16.12 Unilateral primary osteoarthritis, left hip (principal) ==

== ENCOUNTER → 2024-06-19 | Outpatient (CLI) | payer OTHER ==
[2024-06-19 10:47] LABS: BASO # 0.1 10^3/uL (0.0-0.2); BASO % 0.4 % (0.0-1.0); EOS # 0.2 10^3/uL (0.0-0.5); EOS % 1.5 % (0.0-3.0); HEMATOCRIT 46.1 % (42.0-52.0); HEMOGLOBIN 16.1 g/dl (13.5-17.5); LYMPH # 2.2 10^3/uL (1.5-5.0); LYMPH % 19.8 % (24.0-44.0); MEAN CORPUSCULAR HEMOGLOBIN 34.3 pg (27.0-33.0); MEAN CORPUSCULAR HGB CONC 34.9 g/dl (32.0-36.5); MEAN CORPUSCULAR VOLUME 98.3 fl (80.0-96.0); MONO # 1.2 10^3/uL (0.0-0.8); MONO % 10.6 % (2.0-8.0); NEUTROPHILS # 7.5 10^3/uL (1.5-8.5); NEUTROPHILS % 67.4 % (36.0-66.0); PLATELET COUNT, AUTOMATED 105 10^3/uL (150-450); RED BLOOD COUNT 4.69 10^6/uL (4.30-6.10); WHITE BLOOD COUNT 11.1 10^3/uL (4.0-10.0)
[2024-06-19 11:06] LABS: ALBUMIN 4.1 G/DL (3.2-5.2); ALKALINE PHOSPHATASE 82 U/L (40-129); ALT/SGPT 54 U/L (7.0-40); AST/SGOT 23 U/L (<34); BILIRUBIN,TOTAL 0.7 MG/DL (0.3-1.2); BLOOD UREA NITROGEN 23 MG/DL (9-23); CALCIUM LEVEL 10.2 MG/DL (8.5-10.1); CARBON DIOXIDE LEVEL 26 MMOL/L (20-31); CHLORIDE LEVEL 99 MMOL/L (98-107); CREATININE FOR GFR 1.24 MG/DL (0.70-1.30); GLOMERULAR FILTRATION RATE > 60.0 (>56); GLUCOSE, FASTING 147 MG/DL (60-100); POTASSIUM SERUM 4.2 MMOL/L (3.5-5.1); SODIUM LEVEL 137 MMOL/L (136-145); TOTAL PROTEIN 7.7 G/DL (5.7-8.2)
[2024-06-19 11:08] LABS: TOTAL 25(OH) VITAMIN D 23.5 NG/ML (20.0-100.0)
== END ==
LOC: M LAB 10:00
PROVIDERS: ATTEND Neuromusculoskeletal Medicine, Sports Medicine
DX: M16.12 Unilateral primary osteoarthritis, left hip (principal)

== ENCOUNTER 2024-07-31 07:46 | Observation (INO) | payer OTHER ==
[2024-07-31] VITALS (8 sets, daily range): BP systolic 100–119; BP diastolic 54–73; TEMP 97.2–98.1; O2SAT 92–96
[~2024-07-31] VITALS: Ht 180.3 cm; Wt 111.8 kg
[~2024-07-31 07:46] MED LIST changes: -ALBU8.5H; +ALBU8.5H INH
[2024-07-31] MEDS ORDERED: LR 1,000 ML IV SCH (08:15)
[2024-07-31] MEDS ORDERED: ACETAMINOPHEN 1000MG/100ML IV BAG As Ordered ONE (08:23)
[2024-07-31] MEDS ORDERED: propofoL 200 MG/20 ML VIAL As Ordered ONE (09:26)
[2024-07-31] MEDS ORDERED: LIDOCAINE 2% 100MG/5ML SDV (FOR ANES.) As Ordered ONE (09:26)
[2024-07-31] MEDS ORDERED: ONDANSETRON 4MG 2ML VIAL As Ordered ONE (09:26)
[2024-07-31] MEDS ORDERED: MIDAZOLAM INJ 2MG/2ML VIAL As Ordered ONE (09:27)
[2024-07-31] MEDS ORDERED: fentaNYL 100 MCG/2 ML INJECTION As Ordered ONE (09:27)
[2024-07-31] MEDS: ceFAZolin SODIUM 2 GM VIAL As Ordered ONE (12:12)
[2024-07-31] MEDS: TRANEXAMIC ACID 100 MG/ML 10ML VIAL As Ordered ONE (12:30)
[2024-07-31] MEDS ORDERED: PHENYLephrine 500MCG 5ML (100MCG/ML) SYRINGE As Ordered ONE (12:39)
[2024-07-31] MEDS ORDERED: ePHEDrine SULFATE 25 MG/5 ML(5MG/ML) SYRINGE As Ordered ONE (12:39)
[2024-07-31] MEDS ORDERED: KETAMINE HCL 200MG/20ML VIAL As Ordered ONE (12:53)
[2024-07-31] MEDS ORDERED: GLYCOPYRROLATE INJ 0.2 MG/ML 2 ML VIAL As Ordered ONE (12:55)
[2024-07-31] MEDS ORDERED: PHENYLEPHRINE 10MG/ML 1ML VIAL As Ordered ONE (13:04)
[2024-07-31] MEDS: VANCOMYCIN 1000MG/20ML VIAL As Ordered ONE (14:30)
[2024-07-31] MEDS: BUPivacaine LIPOSOME/PF 266MG 20ML VIAL (13.3MG/ML)(EXPAREL) As Ordered ONE (14:35)
[2024-07-31] MEDS: KETOROLAC 30 MG/ML 1ML VIAL As Ordered ONE (14:35)
[2024-07-31] MEDS ORDERED: ONDANSETRON 4MG 2ML VIAL IV PRN (15:10)
[2024-07-31] MEDS ORDERED: oxyCODONE 5MG TAB PO PRN (15:10)
[2024-07-31] MEDS ORDERED: fentaNYL 100 MCG/2 ML INJECTION IV PRN (15:10)
[2024-07-31] MEDS ORDERED: SUPECAP7 PO (18:07)
[2024-07-31] MEDS ORDERED: VITA200012 PO (18:08)
[2024-07-31] MEDS ORDERED: MED REC COMMENT (18:09)
[2024-07-31] MEDS ORDERED: HOME MED LIST COMPLETE! XX SCH (18:10)
[2024-07-31] MEDS: ACETAMINOPHEN 500 MG TAB PO PRN (18:20)
[2024-07-31] MEDS: oxyCODONE 5MG TAB PO PRN (20:20)
[2024-07-31] MEDS: ATORVASTATIN 20 MG TAB PO SCH (20:30)
[2024-07-31] MEDS: ceFAZolin SODIUM 2 GM in DEXTROSE 5% (D5W) ADV/MINI-BAG 50 ML IV SCH (20:30)
[2024-07-31] MEDS: busPIRone 10 MG TAB PO SCH (20:30)
[2024-08-01 05:05] VITALS: BP 120/68; TEMP 97.3; O2SAT 93
[2024-08-01 06:17] LABS: HEMATOCRIT 36.9 % (42.0-52.0); HEMOGLOBIN 13.1 g/dl (13.5-17.5); MEAN CORPUSCULAR HEMOGLOBIN 34.3 pg (27.0-33.0); MEAN CORPUSCULAR HGB CONC 35.5 g/dl (32.0-36.5); MEAN CORPUSCULAR VOLUME 96.6 fl (80.0-96.0); RED BLOOD COUNT 3.82 10^6/uL (4.30-6.10); WHITE BLOOD COUNT 11.7 10^3/uL (4.0-10.0)
[2024-08-01 06:22] LABS: PLATELET COUNT, AUTOMATED 83 10^3/uL (150-450)
[2024-08-01 06:27] LABS: INR 1.02; PROTHROMBIN TIME 13.7 SECONDS (12.5-14.5)
[2024-08-01 06:29] LABS: ALBUMIN 3.3 G/DL (3.2-5.2); BILIRUBIN,TOTAL 0.4 MG/DL (0.3-1.2); CALCIUM LEVEL 9.3 MG/DL (8.5-10.1); CREATININE FOR GFR 1.72 MG/DL (0.70-1.30); GLOMERULAR FILTRATION RATE 45.2 (>56); POTASSIUM SERUM 4.4 MMOL/L (3.5-5.1); TOTAL PROTEIN 6.2 G/DL (5.7-8.2)
[2024-08-01 08:01] VITALS: BP 128/68; TEMP 98.1; O2SAT 92
[2024-08-01] MEDS: LR 1,000 ML IV SCH (09:44)
[2024-08-01] MEDS: MIRALAX *UNIT DOSE* 17GM PACKET PO SCH (10:53)
[2024-08-01] MEDS: SENOKOT S TAB PO SCH (10:53)
[2024-08-01 12:55] VITALS: BP 128/68; TEMP 98.1; O2SAT 98
[2024-08-01 13:08] VITALS: BP 116/65; TEMP 97.9; O2SAT 93
[2024-08-01 13:42] LABS: CALCIUM LEVEL 9.1 MG/DL (8.5-10.1); CREATININE FOR GFR 1.47 MG/DL (0.70-1.30); GLOMERULAR FILTRATION RATE 54.6 (>56); POTASSIUM SERUM 4.1 MMOL/L (3.5-5.1)
[2024-08-01] MEDS ORDERED: APIXABAN 2.5 MG TAB (ELIQUIS) PO ONE (16:30)
== END 2024-08-01 14:40 | disposition home health service (06) ==
LOC: M SDC 07:46 → M MS5PR 07:47
PROVIDERS: ADMIT Family Medicine; ATTEND Family Medicine
DX: M16.12 Unilateral primary osteoarthritis, left hip (principal); I10 Essential (primary) hypertension; E11.9 Type 2 diabetes mellitus without complications; E78.5 Hyperlipidemia, unspecified; F41.9 Anxiety disorder, unspecified; F17.210 Nicotine dependence, cigarettes, uncomplicated; Z79.51 Long term (current) use of inhaled steroids; Z79.899 Other long term (current) drug therapy; Z79.4 Long term (current) use of insulin
CPT/HCPCS: 27130; 36415; 72170; 80048; 80053; 85027; 85049; 85055; 85610; 87641; 88304; 96365; 96366; 97116; 97161; 97165; 97530; C1713; C1776; J0131; J0665; J0666; J0690; J1100; J1596; J1885; J2250; J2371; J2405; J3010; J3370; S2900

== ENCOUNTER → 2024-08-10 | Outpatient (CLI) | payer OTHER ==
[~2024-08-10] MED LIST changes: +MED REC COMMENT; +SUPECAP7 PO; +VITA200012 PO
== END ==
LOC: M SOG 07:18
PROVIDERS: ATTEND Physician Assistant
DX: M16.12 Unilateral primary osteoarthritis, left hip (principal); Z96.642 Presence of left artificial hip joint

== ENCOUNTER 2024-12-31 03:21 | Emergency (ER) | payer OTHER ==
[~2024-12-31] VITALS: Ht 180.3 cm; Wt 111.4 kg
[2024-12-31] MEDS ORDERED: CHLO125TA PO (03:34)
[2024-12-31 05:34] VITALS: BP 112/62; TEMP 98.4; O2SAT 100
[2024-12-31] MEDS: LIDOCAINE 5% PATCH TD ONE (08:26)
[2024-12-31] MEDS: ACETAMINOPHEN 500 MG TAB PO ONE (08:26)
[2024-12-31] MEDS: KETOROLAC 30 MG/ML 1 ML VIAL IM ONE (08:26)
[2024-12-31] MEDS ORDERED: MEDR4PAK PO (10:07)
[2024-12-31] MEDS ORDERED: CYCL-707 PO (10:07)
== END 2024-12-31 10:41 | disposition home or self-care (01) ==
LOC: M ED 03:21
DX: M51.360 Other intervertebral disc degeneration, lumbar region with discogenic back pain only (principal); M51.86 Other intervertebral disc disorders, lumbar region; E11.9 Type 2 diabetes mellitus without complications; F17.200 Nicotine dependence, unspecified, uncomplicated; Z79.52 Long term (current) use of systemic steroids; Z79.1 Long term (current) use of non-steroidal anti-inflammatories (NSAID); Z79.899 Other long term (current) drug therapy
CPT/HCPCS: 72131; 73502; 96372; 99283; J1885

== ENCOUNTER → 2025-02-07 | Outpatient (CLI) | payer OTHER ==
[~2025-02-07] MED LIST changes: +CYCL-707 PO; +MEDR4PAK PO
[2025-02-07 18:09] LABS: PLATELET COUNT, AUTOMATED 125 10^3/uL (150-450)
[2025-02-07 18:11] LABS: PSA SCREENING 0.83 NG/ML (< 4.00)
[2025-02-07 18:13] LABS: ALT/SGPT 39.0 U/L (7.0-40); AST/SGOT 23.0 U/L (<34); CALCIUM LEVEL 9.7 MG/DL (8.3-10.6); CARBON DIOXIDE LEVEL 29.0 MMOL/L (20-31); CHLORIDE LEVEL 104.0 MMOL/L (98-107); CHOLESTEROL LEVEL 163.0 MG/DL (<200); CHOLESTEROL RISK RATIO 2.02 (<5); CREATININE FOR GFR 1.21 MG/DL (0.70-1.30); GLOMERULAR FILTRATION RATE 68.6 (>49); LDL CHOLESTEROL 67.9 MG/DL (<100); NON-HDL-C 82.5 MG/DL; POTASSIUM SERUM 4.4 MMOL/L (3.5-5.1); SODIUM LEVEL 142.0 MMOL/L (136-145); TRIGLYCERIDES LEVEL 73.0 MG/DL (<150)
[2025-02-07 18:28] LABS: ESTIMATED AVERAGE GLUCOSE 146.0 MG/DL (60-110)
[2025-02-07 18:41] LABS: CREATININE, URINE 144.0 MG/DL
[2025-02-07 18:43] LABS: MALB URINE SIEMENS 4.0 MG/L; MAU/CREAT RATIO 2.7 MCG/MG (0.0-30.0)
[2025-02-16 12:07] LABS: BARBITURATES SCREEN, URINE Negative ng/mL (Cutoff=200); BENZODIAZEPINES, URINE SCREEN Negative ng/mL (Cutoff=200); CODEINE, URINE Negative (Cutoff=100); CREATININE, URINE 133.5 mg/dL (20.0-300.0); HYDROCODONE CONFIRM, URINE 918 ng/mL (Cutoff=100); HYDROCODONE, URINE Positive (.); HYDROMORPHONE CONFIRM, URINE 255 ng/mL (Cutoff=100); HYDROMORPHONE, URINE Positive (.); METHADONE, URINE SCREEN Negative ng/mL (Cutoff=300); MORPHINE, URINE Negative (Cutoff=100); OPIATE SCREEN, URINE See Final Results ng/mL (Cutoff=300); OPIATES, URINE Positive ng/mL (Cutoff=300); OXYCODONE, SCREEN, URINE Negative ng/mL (Cutoff=100); PCP SCREEN, URINE Negative ng/mL (Cutoff=25)
== END ==
LOC: M WUC 13:34
PROVIDERS: ATTEND Family Medicine
DX: E11.9 Type 2 diabetes mellitus without complications (principal); I11.9 Hypertensive heart disease without heart failure; E78.5 Hyperlipidemia, unspecified; Z12.5 Encounter for screening for malignant neoplasm of prostate; Z79.891 Long term (current) use of opiate analgesic